=== PATIENT | male | born 1965 | race Caucasian/White ===

== ENCOUNTER 2019-05-08 09:12 | Outpatient (CLI) | payer MEDICAID ==
[2019-05-08] MEDS ORDERED: OMNIPAQUE 350 MG/ML, 100ML BOTTLE ONE (14:55)
== END 2019-05-08 23:59 | disposition home or self-care (01) ==
LOC: CFH 09:12
PROVIDERS: ATTEND Otolaryngology
DX: C96.9 Malignant neoplasm of lymphoid, hematopoietic and related tissue, unspecified (principal); J32.9 Chronic sinusitis, unspecified; J34.2 Deviated nasal septum; K14.8 Other diseases of tongue
CPT/HCPCS: 70486; 70491; Q9967